=== PATIENT | female | born 1995 | race Caucasian/White ===

== ENCOUNTER 2022-02-27 10:11 | Inpatient (IN) ==
[2022-02-27] MEDS ORDERED: LIDOCAINE 1% LOCAL 20 ML VIAL INFIL PRN (10:32)
[2022-02-27] MEDS ORDERED: DINOPROSTONE 10 MG INSERT PV ONE (10:32)
[2022-02-27] MEDS ORDERED: OXYTOCIN 30 UNITS/500 ML BAG IV PRN ×3 (10:32→20:09)
--- NOTE | 2022-02-27 11:08 | History & Physical Report ---
Date of Service February 27, 2022 Assessment & Plan (1) History of gestational hypertension: Plan: 26-year-old -0-0-1 at 39 weeks and 3 days of gestation presenting today for scheduled induction of labor at term due to history of gestational hypertension and one-time elevated pressures in office with normal labs, Vital signs stable afebrile, heart rate reassuring, Cervix favorable, GBS negative Plan to admit, monitor, labs, IV oxytocin per protocol, AROM when able, All questions were answered. Admission and Anticipated Discharge Date Admission Date: February 27, 2022 History of Present Illness Primary Care Provider: NO PCP Patient is a 26-year-old -0-0-1 at 39 weeks and 3 days of gestation who was scheduled for induction of labor at term due to history of gestational hypertension and elevated blood pressures in the office 1 time with normal labs. She has been having headaches for the last 3 days, mild in intensity and responds to Tylenol. She denies change in her vision, nausea vomiting, epigastric or right upper quadrant pain nor lower extremity swelling. She feels crampy, not sure about contractions, denies leakage of fluid or vaginal bleeding. She reports good movements. Her has been uncomplicated except, 1. History of gestational hypertension as above, 2. Maternal asthma, mild uses inhaler as needed, 3. Anxiety, on Zoloft, 4. Obesity during . Allergies Allergy/AdvReac Type Severity Reaction Status Date / Time No Known Allergies Allergy Unverified 07/02/21 16:10 Home Medications Medication Instructions Recorded Confirmed Type vit no.133-ferrous 1 tab PO DAILY 02/21/22 02/21/22 History fumarate 28 mg-folic acid 800 mcg tablet () sertraline 25 mg tablet (Zoloft) 75 mg PO DAILY 02/21/22 02/21/22 History Patient History Medical History (Updated 02/27/22 @ 11:06 by Dolly Garcia MD) Anxiety Asthma uses inhaler prn Hx of migraines when patient was younger Surgical History Hx of tonsillectomy [place] teeth removed Family History Father Heart disease Grandfather (Paternal) Heart disease Uncle Heart disease Social History Smoking Status: Former smoker Second Hand Exposure: Yes; Hx Alcohol Use: No Hx Substance Use: No Preferred Language: Citizen Of The [place] Communication Ability: Effective Death Clearance Coordinator Required: No Beliefs That Will Affect Care: None marital status: Single Current Living Situation: Significant Other Other Information That Helps Us Care for You: No Feels Safe at Home: Yes Safety Concerns: Feels Safe At This Time Assistive Devices: None OB History Full-term in 2019, uncomplicated [employer] History No history of STDs, including Ellia, gonorrhea, herpes Review of Systems as per Subjective / HPI Physical Exam Constitutional: WD/WN, vitals as above well developed, well nourished, + obese and comfortable Gastrointestinal (Abdomen): normal bowel sounds, soft, nontender, no hepatosplenomegaly (Gravid, Femi 7 to 8 pounds) Musculoskeletal: Lower extremities, nontender, no edema Genitourinary: normal external appearance OB Exam Abdomen: + vertex Manual OB Exam: + cervical dilation 3 cm, + cervical effacement 30% and + station -2 OB Exam Monitor Tracing: + external uterine monitor used and + category I Results & Data ([facility]) Vital Signs (Past 12 Hours) Vital Signs Temp Pulse Resp BP 02/27/22 10:38 83 129/82 02/27/22 10:26 36.9 C 18
[2022-02-27] MEDS: LACTATED RINGER'S 1,000 ML IV PRN ×2 (11:13→16:12)
[2022-02-27 11:43] LABS: Hematocrit (blood only) 36.4 % (34.1-44.9); Hemoglobin 12.3 g/dl (12.0-16.0); Mean Corpuscular Hgb Conc 33.8 g/dL (32.0-36.0); Mean Corpuscular Volume 85.8 fL (80.0-100.0); Mean Platelet Volume 11.3 fL (9.4-12.3); Platelet Count 165 K/uL (130-400); RDW Coefficient of Variation 13.6 % (11.5-14.5); RDW Standard Deviation 42.3 fL (36.4-46.3); Red Blood Count 4.24 M/uL (3.93-5.22); White Blood Count 8.81 K/ul (4.8-10.8)
[2022-02-27 12:15] LABS: Alanine Aminotransferase 16 U/L (7-52); Albumin Globulin Ratio 1.2 (0.9-2); Albumin Level 3.5 gm/dl (3.4-5.0); Alkaline Phosphatase 132 U/L (34-104); Anion Gap 8 (3-11); Aspartate Aminotransferase 17 U/L (13-39); Bilirubin,Total 0.3 mg/dl (0.2-1.0); Blood Urea Nitrogen 7 mg/dl (6-23); Calcium 8.3 mg/dl (8.5-10.1); Carbon Dioxide 21 mmol/L (21-32); Chloride 106 mmol/L (98-107); Creatinine Clr Calc Pharmacy 181.5 ml/min; Est GFR (African American) > 150.0 ml/min; Est GFR (Non-African American) 133.6 ml/min; Glucose 78 mg/dl (70-99(Fasting)); Potassium 3.9 mmol/L (3.5-5.1); Sodium 135 mmol/L (136-145); Total Protein 6.5 gm/dl (6.0-8.3)
[2022-02-27] MEDS: ACETAMINOPHEN 325 MG TAB PO PRN (13:54)
[2022-02-27] MEDS ORDERED: fentaNYL 2MCG/ML ROPIVACAINE 1.25MG/ML 100 ML BAG EPI PRN (16:05)
[2022-02-27] MEDS ORDERED: ONDANSETRON INJ 2 MG/ML 2 ML VIAL IV PRN (16:05)
[2022-02-27] MEDS ORDERED: ePHEDrine sulfate 50 MG/ML AMP IV PRN (16:05)
[2022-02-27] MEDS ORDERED: diphenhydrAMINE 50 MG/ML VIAL IV PRN (16:05)
[2022-02-27] MEDS ORDERED: NALOXONE HCL 0.4 MG/1 ML VIAL/CARP IV PRN (16:05)
[2022-02-27] MEDS ORDERED: NALOXONE HCL 1 MG in SODIUM CHLORIDE 0.9% 1000ML 1,000 ML IV PRN (16:05)
[2022-02-27] MEDS ORDERED: NALBUPHINE HCL INJ 10 MG/ML AMP IV PRN (16:05)
--- NOTE | 2022-02-27 16:07 | Anesthesiology Consultation ---
Date of Service February 27, 2022 Assessment & Plan (1) Encounter for pre-operative examination: Chart Review Chart Review: Patient NOT seen in Pre Admission Testing and Acceptable Risk for Labor Epidural Consults Requested none History Height/Weight Height: 5 ft 2 in Weight: 93.44 kg Allergies Allergy/AdvReac Type Severity Reaction Status Date / Time No Known Allergies Allergy Unverified 07/02/21 16:10 Medications Home Medications Medication Instructions Recorded Confirmed Last Taken vit no.133-ferrous 1 tab PO DAILY 02/21/22 02/21/22 1 Day Ago fumarate 28 mg-folic acid 800 mcg ~02/26/22 tablet () sertraline 25 mg tablet (Zoloft) 75 mg PO DAILY 02/21/22 02/21/22 1 Day Ago ~02/26/22 Active Medications Generic Name Dose Route Start Last Admin Trade Name Freq PRN Reason Stop Dose Admin Acetaminophen 650 mg 02/27/22 13:40 02/27/22 13:54 Acetaminophen 325 Mg Tab PO 03/29/22 13:39 650 mg Q4H PRN Administration Pain Lactated Ringer's 1,000 mls @ 150 mls/hr 02/27/22 10:32 02/27/22 16:12 Lr IV 03/01/22 10:31 150 mls/hr .Q6H40M PRN Administration L&D Protocol Protocol Oxytocin 30 units in 500 mls @ 10 mls/hr 02/27/22 11:02 02/27/22 14:30 Pitocin IV 03/01/22 11:01 0.6 units/hr .Q24H PRN 10 mls/hr Labor Induction/Augmentation Titration Protocol 0.6 UNITS/HR Past Medical History Medical History Anxiety Asthma uses inhaler prn Hx of migraines when patient was younger Exercise / Class Metabolic Activity II 4-5 Yardwork/Stairs/Walk up hill Past Family History Family History Father Heart disease Grandfather (Paternal) Heart disease Uncle Heart disease Other Anxiety Past Surgical History Surgical History Hx of tonsillectomy [place] teeth removed Past Anesthesia History No Hx of Anesthesia Complications and No Family Hx of Anesthesia Complications History of PONV No Hx of PONV and No Hx of Motion Sickness Social History Smoking Status: Former smoker tobacco type: cigarettes Hx Alcohol Use: No Hx Substance Use: No Physical Exam Vital Signs Last Vital Signs Temp 36.7 C 02/27/22 14:28 Pulse 79 02/27/22 16:24 Resp 18 02/27/22 14:28 BP 143/82 H 02/27/22 16:24 Pulse Ox 100 02/27/22 16:24 Testing Laboratory Results 02/27/22 11:30 02/27/22 11:30 Blood Type A Positive 02/27/22 11:30 Blood Type Cancelled 02/27/22 11:30 Antibody Screen Cancelled 02/27/22 11:30 Antibody Screen NEGATIVE 02/27/22 11:30
[2022-02-27] MEDS ORDERED: LIDOCAINE 2%/EPINEPHRINE 1:200,000 20 ML SDV ONE (16:08)
[2022-02-27] MEDS ORDERED: fentaNYL citrate 100 MCG/2 ML VIAL ONE (16:08)
[2022-02-27] MEDS ORDERED: SODIUM CHLORIDE 0.9% INJ 10 ML VIAL ONE (16:08)
[2022-02-27] MEDS ORDERED: ePHEDrine sulfate 50 MG/ML AMP ONE (16:08)
[2022-02-27] MEDS ORDERED: BUPIVACAINE 0.25% 30 ML VIAL ONE (16:08)
[2022-02-27] MEDS ORDERED: fentaNYL 2MCG/ML ROPIVACAINE 1.25MG/ML 100 ML BAG EPI ONE (16:09)
--- NOTE | 2022-02-27 16:26 | Obstetrical Progress Note ---
Date of Service February 27, 2022 Assessment & Plan Admission and Anticipated Discharge Date Admission Date: February 27, 2022 Subjective Patient is reevaluated. Getting more painful. FHR categ I VE: 4-5 cm/ 60%/ AROM'ed abundant clear fluid was obtained Patient desires epidural now Continue to monitor Results & Data ([facility]) Vital Signs (Past 12 Hours) Vital Signs Temp Pulse Resp BP Pulse Ox 02/27/22 16:15 88 158/88 H 02/27/22 16:14 86 100 02/27/22 14:28 18 02/27/22 14:28 36.7 C 18 02/27/22 14:30 80 137/79 02/27/22 12:58 82 132/80 02/27/22 10:38 83 129/82 02/27/22 10:26 36.9 C 18
--- NOTE | 2022-02-27 18:02 | Obstetrical Progress Note ---
Date of Service February 27, 2022 Assessment & Plan Admission and Anticipated Discharge Date Admission Date: February 27, 2022 Subjective Patient is reevaluated. She is comfortable now, received epidural FHR categ I [place] ctxs q 3-4 min, palpated mild Oxytocin is just increased to 20 miu/min Continue to monitor closely Lab Results 02/27/22 02/27/22 02/27/22 Range/Units 11:02 11:30 11:30 WBC 8.81 (4.8-10.8) K/ul RBC 4.24 (3.93-5.22) M/uL Hgb 12.3 (12.0-16.0) g/dl Hct 36.4 (34.1-44.9) % MCV 85.8 (80.0-100.0) fL MCH 29.0 (25.0-34.0) pg MCHC 33.8 (32.0-36.0) g/dL RDW Std Deviation 42.3 (36.4-46.3) fL RDW Coeff of Alexei 13.6 (11.5-14.5) % Plt Count 165 (130-400) K/uL MPV 11.3 (9.4-12.3) fL Sodium (136-145) mmol/L Potassium (3.5-5.1) mmol/L Chloride (98-107) mmol/L Carbon Dioxide (21-32) mmol/L Anion Gap (3-11) BUN (6-23) mg/dl Creatinine (0.6-1.2) mg/dl Est Cr Clr Drug Dosing ml/min Est GFR ( Amer) ml/min Est GFR (Non-Af Amer) ml/min BUN/Creatinine Ratio (10-20) Glucose (70-99(Fasting)) mg/dl Calcium (8.5-10.1) mg/dl Total Bilirubin (0.2-1.0) mg/dl AST (13-39) U/L ALT (7-52) U/L Alkaline Phosphatase (34-104) U/L Total Protein (6.0-8.3) gm/dl Albumin (3.4-5.0) gm/dl Globulin (2.5-4.0) gm/dl Albumin/Globulin Ratio (0.9-2) SARS-CoV-2, RNA, NAAT NEGATIVE (NEGATIVE) Blood Type A Positive Antibody Screen NEGATIVE 02/27/22 02/27/22 Range/Units 11:30 11:30 WBC (4.8-10.8) K/ul RBC (3.93-5.22) M/uL Hgb (12.0-16.0) g/dl Hct (34.1-44.9) % MCV (80.0-100.0) fL MCH (25.0-34.0) pg MCHC (32.0-36.0) g/dL RDW Std Deviation (36.4-46.3) fL RDW Coeff of Alexei (11.5-14.5) % Plt Count (130-400) K/uL MPV (9.4-12.3) fL Sodium 135 L (136-145) mmol/L Potassium 3.9 (3.5-5.1) mmol/L Chloride 106 (98-107) mmol/L Carbon Dioxide 21 (21-32) mmol/L Anion Gap 8 (3-11) BUN 7 (6-23) mg/dl Creatinine 0.50 L (0.6-1.2) mg/dl Est Cr Clr Drug Dosing 181.5 ml/min Est GFR ( Amer) > 150.0 ml/min Est GFR (Non-Af Amer) 133.6 ml/min BUN/Creatinine Ratio 14.0 (10-20) Glucose 78 (70-99(Fasting)) mg/dl Calcium 8.3 L (8.5-10.1) mg/dl Total Bilirubin 0.3 (0.2-1.0) mg/dl AST 17 (13-39) U/L ALT 16 (7-52) U/L Alkaline Phosphatase 132 H (34-104) U/L Total Protein 6.5 (6.0-8.3) gm/dl Albumin 3.5 (3.4-5.0) gm/dl Globulin 3.0 (2.5-4.0) gm/dl Albumin/Globulin Ratio 1.2 (0.9-2) SARS-CoV-2, RNA, NAAT (NEGATIVE) Blood Type Cancelled Antibody Screen Cancelled Results & Data ([facility]) Vital Signs (Past 12 Hours) Vital Signs Temp Pulse Resp BP Pulse Ox 02/27/22 17:54 69 132/75 99 12/14/22 17:49 68 99 02/27/22 17:44 72 98 02/27/22 17:39 66 133/74 100 02/27/22 17:34 78 100 02/27/22 17:29 70 99 02/27/22 17:24 63 146/82 H 99 02/27/22 17:19 75 99 02/27/22 17:14 73 99 02/27/22 17:09 76 99 02/27/22 17:08 81 135/74 02/27/22 17:04 81 99 02/27/22 16:59 78 99 02/27/22 16:54 98 02/27/22 16:54 75 02/27/22 16:54 71 135/78 02/27/22 16:49 77 98 02/27/22 16:44 79 99 02/27/22 16:39 81 98 02/27/22 16:36 76 145/79 H 02/27/22 16:34 88 145/72 H 99 02/27/22 16:32 82 147/89 H 02/27/22 16:30 71 140/82 02/27/22 16:29 74 100 02/27/22 16:24 100 02/27/22 16:24 79 02/27/22 16:24 77 143/82 H 02/27/22 16:19 81 100 02/27/22 16:15 88 158/88 H 02/27/22 16:14 86 100 02/27/22 14:28 18 02/27/22 14:28 36.7 C 18 02/27/22 14:30 80 137/79 02/27/22 12:58 82 132/80 02/27/22 10:38 83 129/82 02/27/22 10:26 36.9 C 18
--- NOTE | 2022-02-27 19:01 | Obstetrical Progress Note ---
Date of Service February 27, 2022 Assessment & Plan Admission and Anticipated Discharge Date Admission Date: February 27, 2022 Subjective Patient is reevaluated She feels well, no complaints Straight cath 100 ml dark urine VE; 5cm/ 70%/ -2, anterior fontanelle at 9 o'clock position. Large gush of clear fluid + FHR categ I Contractions q 2-3 min, Oxytocin is at 18 miu/min Plan IVF, rigth lateral position to help for internal rotation Continue to monitor closely Results & Data ([facility]) Vital Signs (Past 12 Hours) Vital Signs Temp Pulse Resp BP Pulse Ox 02/27/22 18:54 81 99 02/27/22 18:49 63 100 02/27/22 18:44 73 100 02/27/22 18:42 89 90 02/27/22 18:39 61 100 02/27/22 18:40 60 129/66 02/27/22 18:34 65 99 02/27/22 18:29 65 99 02/27/22 18:24 65 130/66 99 02/27/22 18:19 64 99 02/27/22 18:15 71 91 02/27/22 18:14 66 98 02/27/22 18:09 62 99 02/27/22 18:08 59 L 135/74 02/27/22 18:04 66 96 02/27/22 18:02 74 92 02/27/22 17:59 77 100 02/27/22 17:54 69 132/75 99 02/27/22 17:49 68 99 02/27/22 17:44 72 98 02/27/22 17:39 66 133/74 100 02/27/22 17:34 78 100 02/27/22 17:29 70 99 02/27/22 17:24 63 146/82 H 99 02/27/22 17:19 75 99 02/27/22 17:14 73 99 02/27/22 17:09 76 99 02/27/22 17:08 81 135/74 02/27/22 17:04 81 99 02/27/22 16:59 78 99 02/27/22 16:54 98 02/27/22 16:54 75 02/27/22 16:54 71 135/78 02/27/22 16:49 77 98 02/27/22 16:44 79 99 02/27/22 16:39 81 98 02/27/22 16:36 76 145/79 H 02/27/22 16:34 88 145/72 H 99 02/27/22 16:32 82 147/89 H 02/27/22 16:30 71 140/82 02/27/22 16:29 74 100 02/27/22 16:24 100 02/27/22 16:24 79 02/27/22 16:24 77 143/82 H 02/27/22 16:19 81 100 02/27/22 16:15 88 158/88 H 02/27/22 16:14 86 100 02/27/22 14:28 18 02/27/22 14:28 36.7 C 18 02/27/22 14:30 80 137/79 02/27/22 12:58 82 132/80 02/27/22 10:38 83 129/82 02/27/22 10:26 36.9 C 18
[2022-02-27] MEDS ORDERED: miSOPROStoL 200 MCG TAB ONE (20:01)
[2022-02-27] MEDS ORDERED: MEASLES, MUMPS & RUBELLA VIRUS VIAL SQ ONE (20:09)
[2022-02-27] MEDS ORDERED: ACETAMINOPHEN 325 MG TAB PO PRN (20:09)
[2022-02-27] MEDS ORDERED: DIPHTHERIA/TETANUS/PERTUSSIS 0.5 ML SYR/VIAL IM ONE (20:09)
[2022-02-27] MEDS ORDERED: HYDROCORTISONE ACETATE 25 MG SUPP PR PRN (20:09)
[2022-02-27] MEDS ORDERED: bisacodyL 10 MG SUPP PR PRN (20:09)
[2022-02-27] MEDS ORDERED: BENZOCAINE 20% AER SPR 82.5 GM CAN EXT PRN (20:09)
[2022-02-27] MEDS ORDERED: miSOPROStoL 200 MCG TAB PR ONE (20:09)
--- NOTE | 2022-02-27 20:11 | Anesthesia Procedure Note ---
Date of Service February 27, 2022 Anesthesia Post Epidural Note Vital Signs Vital Signs: Temp Pulse Resp BP Pulse Ox 36.8 C 68 18 127/69 100 02/27/22 19:15 02/27/22 20:09 02/27/22 19:15 02/27/22 20:08 02/27/22 20:09 Pain Intensity Abdomen: Pain Intensity: 4 Notes Mental Status: alert / awake / arousable and participated in evaluation Nausea / Vomiting: adequately controlled Pain: adequately controlled Airway Patency, RR, SpO2: stable & adequate BP & HR: stable & adequate Hydration State: stable & adequate Neuraxial Anesthesia: was administered and sensory block is resolving Anesthetic Complications: Pt Satisfied with anesthetic care Epidural: Removed without complications and With tip intact
--- NOTE | 2022-02-27 20:14 | Delivery Summary ---
Vaginal Delivery Summary Date of Service February 27, 2022 Vaginal Delivery Summary Patient was found to be fluid dilated and desired to push. She pushed through 2 contractions and delivered the head without difficulty.Patient was found to be fluid dilated and desired to push. She pushed through 2 contractions and delivered the head without difficulty. The shoulders were delivered with minimal traction. The baby was handed to the mother by mouth and nose were suctioned, the cord was clamped times and cut at 1 minute delay. The baby was moving and crying at that point. The vagina and perineum were checked for lacerations. There was only a small first-degree laceration at the hymen at 5 o'clock position. It was repaired with 3-0 Vicryl in a running fashion. The rest of the vagina and labia were intact. The placenta was found to be the vagina, delivered spontaneously as intact and complete. Uterus was explored and found to be empty, the lower segment was cleared of all clots and debris's, fundus was firm and EBL was 250 mL. Mom and baby tolerated procedure well. Sponge needle instrument count was correct x2. Baby was a viable male Apgars 8/9 and weight is pending. No complications happened and I was present during whole procedure.
[2022-02-27] MEDS ORDERED: SERTRALINE HCL 50 MG TABLET PO SCH (21:00)
[2022-02-27] MEDS: IBUPROFEN 600 MG TAB PO PRN (21:15)
[2022-02-27] MEDS: DOCUSATE SODIUM 100 MG CAP PO SCH (21:23)
[2022-02-28] MEDS: IBUPROFEN 600 MG TAB PO PRN ×2 (06:51→16:55)
[2022-02-28 07:06] LABS: Hematocrit (blood only) 33.7 % (34.1-44.9); Hemoglobin 11.3 g/dl (12.0-16.0); Mean Corpuscular Hemoglobin 28.6 pg (25.0-34.0); Mean Corpuscular Hgb Conc 33.5 g/dL (32.0-36.0); Mean Corpuscular Volume 85.3 fL (80.0-100.0); Mean Platelet Volume 11.1 fL (9.4-12.3); Platelet Count 159 K/uL (130-400); RDW Coefficient of Variation 13.4 % (11.5-14.5); RDW Standard Deviation 42.4 fL (36.4-46.3); Red Blood Count 3.95 M/uL (3.93-5.22); White Blood Count 10.52 K/ul (4.8-10.8)
[2022-02-28] MEDS ORDERED: FERROUS SULFATE 325 MG TAB PO SCH (08:00)
[2022-02-28] MEDS ORDERED: PRENATAL VITAMIN 1 TAB PO SCH (08:00)
[2022-02-28] MEDS: DOCUSATE SODIUM 100 MG CAP PO SCH (08:35)
[2022-02-28] MEDS: ACETAMINOPHEN 325 MG TAB PO PRN (08:36)
--- NOTE | 2022-02-28 11:04 | Obstetrical Progress Note ---
Date of Service February 28, 2022 Subjective Ambulation: ambulating normally Voiding: no voiding problems Passing Gas:: Yes Diet Tolerance:: regular diet Lochia:: Small Feeding Type:: breast feeding Current Pain Level(1-10): 0 doing well. wants to home today Physical Exam Constitutional WD/WN, vitals as above Gastrointestinal (Abdomen) Inspection/Auscultation: abdomen normal to inspection abdomen soft and non-tender. Musculoskeletal Extremities: extremities normal to inspection Skin no rashes, warm and dry Neurologic patellar DTR's 2+ bilat, sensation intact Psychiatric A+Ox3, euthymic affect Results & Data ([facility]) Vital Signs (Past 12 Hours) Vital Signs Temp Pulse Resp BP Pulse Ox O2 Del Method 02/28/22 07:20 36.6 C 70 18 139/84 98 Room Air 02/28/22 03:30 36.6 C 72 18 130/77 02/28/22 00:00 36.6 C 88 18 127/69 Laboratory Results 02/27/22 02/27/22 02/27/22 11:02 11:30 11:30 WBC 8.81 RBC 4.24 Hgb 12.3 Hct 36.4 MCV 85.8 MCH 29.0 MCHC 33.8 RDW Std Deviation 42.3 RDW Coeff of Alexei 13.6 Plt Count 165 MPV 11.3 Sodium Potassium Chloride Carbon Dioxide Anion Gap BUN Creatinine Est Cr Clr Drug Dosing Est GFR ( Amer) Est GFR (Non-Af Amer) BUN/Creatinine Ratio Glucose Calcium Total Bilirubin AST ALT Alkaline Phosphatase Total Protein Albumin Globulin Albumin/Globulin Ratio SARS-CoV-2, RNA, NAAT NEGATIVE Blood Type A Positive Antibody Screen NEGATIVE 02/27/22 02/27/22 02/28/22 11:30 11:30 06:57 WBC 10.52 RBC 3.95 Hgb 11.3 L Hct 33.7 L MCV 85.3 MCH 28.6 MCHC 33.5 RDW Std Deviation 42.4 RDW Coeff of Alexei 13.4 Plt Count 159 MPV 11.1 Sodium 135 L Potassium 3.9 Chloride 106 Carbon Dioxide 21 Anion Gap 8 BUN 7 Creatinine 0.50 L Est Cr Clr Drug Dosing 181.5 Est GFR ( Amer) > 150.0 Est GFR (Non-Af Amer) 133.6 BUN/Creatinine Ratio 14.0 Glucose 78 Calcium 8.3 L Total Bilirubin 0.3 AST 17 ALT 16 Alkaline Phosphatase 132 H Total Protein 6.5 Albumin 3.5 Globulin 3.0 Albumin/Globulin Ratio 1.2 SARS-CoV-2, RNA, NAAT Blood Type Cancelled Antibody Screen Cancelled
[2022-02-28] MEDS ORDERED: bisacodyL 5 MG TABEC PO SCH (20:00)
== END 2022-02-28 20:22 | disposition home or self-care (01) | DRG 807 ==
LOC: 4S1 10:11 → 4E1 23:00